=== PATIENT | female | born 1980 | race Caucasian/White ===

== ENCOUNTER 2016-06-06 19:44 | Emergency (ER) | payer OTHER ==
[~2016-06-06] VITALS: Ht 167.6 cm; Wt 95.5 kg
[2016-06-06 19:46] VITALS: BP 123/74; PULSE 85; RESP 16; O2SAT 100
--- NOTE | 2016-06-06 21:09 | ED.REPORT ---
HPI-Back Pain Under 40 Date of Service Jun 06, 2016 ED Provider: Dr. Александр Mendiola M.D. A 36 year old female with a history of sciatica presents to the ED with left- sided lower back pain onset two weeks ago after moving furniture. The pain intermittently radiates down her left leg. She has been applying heat and ice as well as taking ibuprofen and Tylenol with no relief. She was seen in Urgent Care five days ago where she received a Toradol shot with no relief. The pain has worsened since then. Now the patient also reports numbness/tingling and intermittent weakness in her left leg. Her sciatic pain in the past was relieved with a few days of heat, ice, and rest. The patient denies bowel/ bladder incontinence. Nursing Notes Stated Complaint: BACK PAIN Chief Complaint: Back Pain or Injury Nursing Notes Reviewed: Yes Allergies: Coded Allergies: meperidine (Verified Allergy, Intermediate, hives, 06/06/16) Uncoded Allergies: DIMETAPP (Allergy, Severe, anaphylaxis, 06/06/16) Scheduled Prednisone (PredniSONE) 20 Mg Tablet 20 MG PO TID General Time Seen by MD: 21:08 Chief Complaint Lumbar pain Hx Obtained From: Patient Arrived By: Walk-in Sudden in Onset?: No Onset Occurred: More than a week ago... (2 weeks) Symptom Duration: Since onset Caused by: Lifting Location: : Spinal lumbar area Quality: Painful Radiation: : Left leg above knee: Left leg below knee Severity: Current: Moderate Severity: Maximum: Moderate Associated with: Reports: Numbness left low ext, Tingling left lower ext, Weakness left lower ext, Denies: Fever Pertinent Negative: Relieved by nothing Recent Healthcare: No recent doctor visit Similar Sx Previous: Yes Past Medical History Past Medical History Sciatica Leg fracture Past Surgical History Leg surgery s/p fracture Smoking History Unknown if Ever Smoker Social History Moved to the area recently 06/2016 Other Social History: Good social support, From out of town Ambulatory Status Independent Review of Systems Review of Systems Note: + Left leg paresthesia Constitutional: Denies: Fever Respiratory: Denies: Non-productive cough, Shortness of breath GI: Denies: Vomiting Female: Denies: Incontinence Musculoskeletal: Reports: Back pain (Left-sided lower ), Extremity pain (Left leg) Neurologic: Reports: Focal weakness (Left leg), Numbness (Left leg), Denies: Bladder dysfunction, Bowel dysfunction Complete sys rev & neg: except as marked. Physical Exam Physical Exam Notes: Initial Vital Signs Vital Signs (First) Date Time Temp Pulse Resp B/P Pulse Ox O2 Delivery O2 Flow Rate FiO2 06/06/16 19:46 36.4 85 16 123/74 100 Room Air Initial VS: Reviewed, Vital signs normal Head / Eyes: Atraumatic, Normocephalic ENT: Conjunctiva normal, No scleral icterus Neck: Supple, Full range of motion Respiratory: No respiratory distress Cardiovascular: Regular rate & rhythm, Heart sounds normal Skin: Warm, Dry, No cyanosis Psychiatric: Mood/affect normal, Behavior normal, Normal thought content General/Constitutional: Awake, Alert Back: Atraumatic Straight Leg Raise: Positive: Strt leg raise + L 10 deg (with pain radiating down left buttock to the mid thigh) Pain is in L5-S1 dermatomal distribution Left sciatic notch tenderness Neurologic: Oriented X3, Speech NL, No sensory deficits Focal Weakness: Negative: Foot drop L, Foot drop R Reflex Abnormality: Positive: Achilles L... (1), Achilles R... (1), Patella L... (1), Patellar R... (2) Gait - Left foot rotates outward more than right Interpretation & Diagnostics LUMBAR SPINE MRI: IMPRESSION: 1. Moderate disc desiccation and height loss at L4-5 and L5-S1. 2. L4-5 posterior annular tear. 3. Broad-based left lateral L5-S1 disc bulge which abuts the exiting nerve root at this level. Dictated by: Migdalia Diana M.D. on 06/06/2016 at 22:02 Re-Eval/Medical Decision Med Decision/Clinical Course 36-year-old female with a history of disc disease presents with progressive left sciatica with leg weakness and decreased left patellar reflex. No bowel or bladder problems. MRI was done because of the extended history and progressive nature. It showed that she does have disc disease with nerve impingement at L4 5 and L5-S1. She was given a prepack of oxycodone/ acetaminophen 5/325 #10 and a prescription for 5 days of prednisone. She is to follow-up with [facility] and [facility] therapy. Re-Evaluation/Progress : Time of Eval: 23:12 Patient Status: Condition improved Re-Evaluation/Progress Note: Discussed with patient MRI results, diagnosis, and plan for discharge. Follow-up and return to the ER instructions given. Patient agrees with plan for care and all questions were addressed. Counseled Regarding: Diagnosis, Need for follow-up, When/why to return to ED Discharge & Departure Impression: Primary Impression: Sciatica of left side Additional Impression: Lumbar disc herniation Disposition: Home All VS Reviewed: Yes Condition: Stable Patient Instructions: Lumbar Radiculopathy (ED) Additional Instructions: There is disc disease at L4-5 and L5-S1, likely the source of your sciatic nerve pain. You will need physical therapy and further orthopedic evaluation. Continue your present medications. Add prednisone 20 mg by mouth 3 times a day for 5 days, #15 prescription written. Oxycodone/acetaminophen 5/325 (Percocet) , 1 or 2 pills every 4-6 hours as needed for severe pain, #10 dispensed. You should use this medication minimally and not plan to refill it. Referrals: James Crenshaw MD (PCP) Scribe Attestation Portions of this note were transcribed by Laure Kim. I, Dr. Mendiola, personally performed the history, physical exam, and medical decision-making; I reviewed and confirmed the accuracy of the information in the transcribed note. Signed by: Pablo Timmons, 06/06/2016, 23:31 copies to: James Crenshaw MD, Howard L MD Jun 06, 2016 21:09 LAURE KIM Jun 06, 2016 21:32
[2016-06-06] MEDS ORDERED: predniSONE 20 mg Tablet PO ONE (21:30)
--- NOTE | 2016-06-06 22:04 | DRSVH ---
PROCEDURE: MRI LUMBAR SPINE WITHOUT CONTRAST ([id number]) INDICATIONS: L sciatica, leg weakness, decreased patellar DTR TECHNIQUE: Noncontrast sagittal T1 spin echo and T2 fast echo, sagittal STIR, axial T1 and T2 fast spin echo thr ough the lumbar spine. In cases with scoliosis, additional coronal T2 fast spin echo may be performe d. COMPARISON: None. FINDINGS: Image quality: Excellent. Alignment and Curvature: There is normal bony alignment. Bone Marrow: Marrow is of normal overall signal. No acute vertebral body compression fractures. Spinal Cord: Conus medullaris terminates at the T12/L1 level. Visualized cord demonstrates normal s ignal and size. Paraspinous Soft Tissues: No paravertebral masses. L1-L2: Normal appearance. L2-L3: Normal appearance. L3-L4: Mild disc bulge. Mild facet and ligamentum flavum hypertrophy. No canal stenosis or foraminal narrowing. L4-L5: Moderate disc desiccation and height loss. Posterior focal high intensity zone. Moderate facet and ligamentum flavum hypertrophy. Broad-based disc bulge. Mild canal stenosis. No neuroforaminal na rrowing. L5-S1: Moderate disc desiccation and height loss. Broad-based disc bulge. Left lateral broad-based di sc bulge with narrowing of the left lateral recess. This bulge likely abuts the exiting left nerve ro ot. Moderate facet sclerosis. No canal stenosis. No neuroforaminal narrowing. IMPRESSION: 1. Moderate disc desiccation and height loss at L4-5 and L5-S1. 2. L4-5 posterior annular tear. 3. Broad-based left lateral L5-S1 disc bulge which abuts the exiting nerve root at this level. Dictated by: Migdalia Diana M.D. on 06/06/2016 at 22:02 Approved by: Migdalia Diana M.D. on 06/06/2016 at 22:02
[2016-06-06] MEDS ORDERED: _oxyCODONE/APAP 5-325 mg Tablet PO PRN (23:20)
[2016-06-06] MEDS ORDERED: PRE20 PO (23:26)
[2016-06-06 23:47] VITALS: BP 116/71; PULSE 76; RESP 16; O2SAT 96
== END 2016-06-07 00:03 | disposition home or self-care (01) ==
LOC: SED 19:44
DX: M54.32 Sciatica, left side (principal); X50.0XXA Overexertion from strenuous movement or load, initial encounter; Y93.E6 Activity, residential relocation; Y92.9 Unspecified place or not applicable; Y99.8 Other external cause status; M51.26 Other intervertebral disc displacement, lumbar region; Z88.5 Allergy status to narcotic agent

== ENCOUNTER 2016-08-04 17:19 | Emergency (ER) | payer OTHER ==
[~2016-08-04] VITALS: Ht 170.2 cm; Wt 97.7 kg
[~2016-08-04 17:19] MED LIST: PRE20 PO
[2016-08-04 17:24] VITALS: BP 148/98; PULSE 88; RESP 16; O2SAT 98
--- NOTE | 2016-08-04 18:39 | ED.REPORT ---
HPI-General Illness Date of Service Aug 04, 2016 ED Provider: Yuri Schaefer DO Pt is a 36 y/o female presentign to the ED with multiple medical complaints. She reports CP which she attributes to anxiety but she wants to be checked out because she was diagnosed with long QT syndrome in the remote past. She also c/ o low back pain which is not relieved by OTC pain medications. She was diagnosed with lumbar disc herniation after an MRI which was performed in the ED early June 2016 and has not received orthopedic follow-up yet because of insurance issues. She is also reporting a worsening cough onset 1 month ago which is now producing clear phlegm. She is a smoker and has no diagnosed pulmonary disease. She has a family history of cardiac disease but no diagnosed personal history. Pt denies bowel or bladder incontinence, SOB, abdominal pain, N/V/D, numbness or weakness of her lower extremities. Nursing Notes Stated Complaint: BACK PAIN, CHEST PAIN, COUGH Chief Complaint: General Complaint Nursing Notes Reviewed: Yes Allergies: Coded Allergies: meperidine (Verified Allergy, Intermediate, hives, 08/04/16) Uncoded Allergies: DIMETAPP (Allergy, Severe, anaphylaxis, 06/06/16) Scheduled Prednisone (PredniSONE) 20 Mg Tablet 20 MG PO TID Prednisone (PredniSONE) 20 Mg Tablet 40 MG PO DAILY Sulfamethoxazole/Trimeth 400-80 mg (Bactrim) 1 Each Tablet 1 TABLET PO BID Scheduled PRN Hydrocodone-Acetaminophen 5-325 mg (Hydrocodone-Acetaminophen 5-325 mg) 1 Each Tablet 1 TABLET PO Q4H PRN PRN For Pain General Time Seen by MD: 18:26 Chief Complaint Multip medical complaints Hx Obtained From: Patient Arrived By: Walk-in Sudden in Onset?: No Onset Occurred: More than a week ago... (1 month) Symptom Duration: Intermittent Location: : Chest Quality: Painful Radiation: : Does not radiate Severity: Current: Mild Severity: Maximum: Mild Past Medical History Past Medical History Lumbar disc herniation with left leg sciatica Remote history of long QT syndrome - EKG 08/04/16 normal Leg fracture PCOS Past Surgical History Leg surgery s/p fracture Family History Cardiac disease Smoking History Current Every Day Smoker Social History Moved to the area recently 06/2016 Other Social History: Good social support, From out of town Ambulatory Status Independent Review of Systems Full Review of Systems Constitutional: Denies: Chills, Fever Respiratory: Reports: Prod cough, clear, Denies: Shortness of breath Cardiovascular: Reports: Chest pain, Denies: Dyspnea on exertion GI: Denies: Abdominal pain, Diarrhea, Nausea, Vomiting Female: Denies: Dysuria, Hematuria Musculoskeletal: Reports: Lumbar pain, Denies: Extremity pain, Extremity swelling Neurologic: Denies: Bladder dysfunction, Bowel dysfunction, Numbness, Weakness Psychiatric: Reports: Anxiety, Denies: Delusional Complete sys rev & neg: except as marked. Physical Exam Vital Signs Vital Signs Date Time Temp Pulse Resp B/P Pulse Ox O2 Delivery O2 Flow Rate FiO2 08/04/16 21:55 69 20 123/87 98 Room Air 08/04/16 20:34 83 16 131/84 94 Room Air 08/04/16 17:24 36.2 88 16 148/98 98 Room Air Initial VS: Reviewed, Vital signs normal Head / Eyes: Atraumatic, Normocephalic, PERRL ENT: Mucous membranes moist, Conjunctiva normal, No scleral icterus Neck: Supple, Full range of motion Respiratory: Breath sounds normal, Clear to auscultation, No respiratory distress Cardiovascular: Regular rate & rhythm, Heart sounds normal, Intact distal pulses Abdomen / GI: Soft, Non-tender, No guarding, No rebound, No distention Skin: Warm, Dry, No cyanosis Neurologic: Alert, Oriented, Nonfocal Psychiatric: Mood/affect normal, Behavior normal, Normal thought content General/Constitutional: Awake, Alert, No acute distress, Well appearing, Cooperative, Not toxic appearing Back: Atraumatic, Full range of motion, No midline vertebral tend Mild left lumbar tenderness Interpretation & Diagnostics Lab Results Interpretation Result Diagram: 08/04/16193908/04/161939 Test 08/04/16 18:45 08/04/16 19:40 Urine Color Yellow (YELLOW) Urine Appearance Hazy (CLEAR,HAZY) Urine pH 5.5 (5.0-8.0) Urine Specific [place] 1.030 (1.003-1.035) Urine Protein Negativemg/dL (NEG,TRACE) Urine Glucose (UA) Negativemg/dL (NEGATIVE) Urine Ketones Negativemg/dL (NEGATIVE) Urine Occult Blood Large (NEGATIVE) Urine Nitrite Negative (NEGATIVE) Urine Bilirubin Negative (NEGATIVE) Urine Urobilinogen Normalmg/dL (NORMAL) Urine Leukocyte Esterase Trace (NEGATIVE) Urine RBC 11-50/hpf (0-2) Urine WBC 6-10/hpf (0-5) Urine Epithelial Cells Many/hpf (NONE-MOD) Urine Crystals None seen (NONE SEEN) Urine Bacteria Few/hpf (NONE-FEW) Urine Hyaline Casts None/lpf (NONE) Urine Granular Casts None seen (NONE SEEN) Urine Waxy Casts None seen (NONE SEEN) Urine Red Blood Cell Casts None seen (NONE SEEN) Urine White Blood Cell Casts None seen (NONE SEEN) Urine Mucus Present (None Seen) Urine Trichomonas None seen (NONE SEEN) Urine Yeast None (NONE SEEN) Urinalysis Comment None Urine Culture Reflexed Indicated White Blood Count 12.2th/mm3 (3.8-10.1) Red Blood Count 4.83mil/mm3 (3.90-5.20) Hemoglobin 13.7g/dL (12.0-15.6) Hematocrit 40.4% (35.0-46.0) Mean Corpuscular Volume 83.6fL (81-100) Mean Corpuscular Hemoglobin 28.4pg (27.0-35.0) Mean Corpuscular Hemoglobin Concent 33.9% (32.0-37.0) Red Cell Distribution Width 13.5% (12.3-15.4) Platelet Count 381bil/L (150-400) Neutrophils (%) (Auto) 62.5% (40-74) Lymphocytes (%) (Auto) 28.1% (14-46) Monocytes (%) (Auto) 7.1% (4-12) Eosinophils (%) (Auto) 1.8% (0-5) Basophils (%) (Auto) 0.3% (0-3) Sodium Level 136mEq/L (134-144) Potassium Level 3.7mEq/L (3.5-5.2) Chloride Level 100mEq/L (97-108) Carbon Dioxide Level 20mmol/L (18-29) Blood Urea Nitrogen 22mg/dL (6-20) Creatinine 0.54mg/dL (0.57-1.00) Estimat Glomerular Filtration Rate 181mL/min (>59) Glucose Level 100mg/dL (60-99) Calcium Level 9.1mg/dL (8.5-10.1) Total Bilirubin < 0.2mg/dL (0.0-1.2) Aspartate Amino Transf (AST/SGOT) 12U/L (0-50) Alanine Aminotransferase (ALT/SGPT) 11U/L (0-32) Alkaline Phosphatase 67U/L (25-150) Troponin T < 0.010ug/L (0.0-0.011) Total Protein 7.0g/dL (6.4-8.4) Albumin 4.0g/dL (3.4-5.0) Hold Garcia Top Tube Received (Received) ECG Interpretation Time: 18:54 Interpreted by: ED physician Normal ECG Interpretation: Normal ECG w/ rate of... (81), Normal rate, Normal sinus rhythm, No acute ischemic changes, Normal QRS, Normal axis, Normal intervals, Adequate tracing X-Ray Chest Interpretation Chest Xray Interpretation: IMPRESSION: No acute process. Dictated by: Julio Norris M.D. on 08/04/2016 at 20:15 Approved by: Julio Norris M.D. on 08/04/2016 at 20:15 View: Portable, AP & lat Interpretation / Wet Read by: Interpret - Radiologist Re-Eval/Medical Decision Med Decision/Clinical Course 36-year-old female presenting for 3 different complaints. First she is noting that her back pain is returning and she has a history of herniated disks. Her pain was significantly improved after a course of steroids several weeks ago. She has no weakness of her left lower extremity but continues to have pain radiating down the leg. She denies urinary symptoms however her UA has blood and white blood cells. Her serum white blood cell count is elevated. She is also concerned about cough she has had that keeps her up at night. Her chest x- ray is negative and I do not feel that she needs an antibiotic. Discharged with Bactrim for UTI, five-day course of prednisone for low back, and small supply of Argillite. Have also given her referral to establish with a new primary care Time of Eval: 21:08 Re-Evaluation/Progress Note: Pt rechecked. Informed pt of plan for treatment. Pt understands and agrees with plan for treatment. F/U instructions and RTER warnings given. All questions addressed. Counseled Regarding: Diagnosis, Lab results, Need for follow-up, When/why to return to ED Discharge & Departure Primary Impression: Urinary tract infection Urinary tract infection type: site unspecified Hematuria presence: without hematuria Qualified Code: N39.0 - Urinary tract infection, site not specified Additional Impressions: Viral upper respiratory infection Low back pain with left-sided sciatica Chronicity: acute Back pain laterality: left Qualified Code: M54.42 - Lumbago with sciatica, left side Disposition: Home Discharge Condition All VS Reviewed: Yes Condition: Stable Patient Instructions: Upper Respiratory Infection (ED), Urinary Tract Infection in Women (ED) Additional Instructions: The labs showed signs of urinary tract infection. The cough is likely caused by a viral infection. Your labs were otherwise normal. Your chest x-ray was normal and showed no sign of pneumonia. Your EKG was also normal. There was no sign of heart attack or long QT syndrome at this time. Take the prescribed medications as directed. Return to the emergency department if you experience trouble breathing, high fever, persistent vomiting, severe pain, or for other concerning symptoms. Follow-up with your primary care doctor next week. Referrals: [facility] Scribe Attestation Portions of this note were transcribed by Florencio Celestin. I, Dr. Schaefer, personally performed the history, physical exam and medical decision-making; I reviewed and confirmed the accuracy of the information in the transcribed note. Signed by Pablo Landrum, 08/04/16 - 1899 Yuri Schaefer DO Aug 04, 2016 18:39 FLORENCIO CELESTIN Aug 04, 2016 18:54
[2016-08-04] MEDS ORDERED: HYDROcodone-APAP 5-325 mg Tablet PO ONE ×2 (19:15→21:10)
[2016-08-04 19:24] LABS: APPEARANCE,URINE HAZY (CLEAR,HAZY); COLOR,URINE YELLOW (YELLOW); OCCULT BLOOD,URINE LARGE (NEGATIVE); PH,URINE 5.5 (5.0-8.0)
[2016-08-04 19:25] LABS: UROBILINOGEN,URINE NORMAL (NORMAL)
[2016-08-04 19:51] LABS: BASOPHILS % (AUTO) 0.3 % (0-3); EOSINOPHILS % (AUTO) 1.8 % (0-5); MONOCYTES % (AUTO) 7.1 % (4-12); Mean Corpuscular Hemoglobin 28.4 pg (27.0-35.0); Mean Corpuscular Volume 83.6 fL (81-100); NEUTROPHILS % (AUTO) 62.5 % (40-74); Platelet Count 381 bil/L (150-400)
--- NOTE | 2016-08-04 20:17 | DRSVH ---
PROCEDURE: X-RAY CHEST, TWO VIEWS ([id number]) INDICATIONS: chest pain, shortness of breath TECHNIQUE: 2 views of the chest were acquired. COMPARISON: None. FINDINGS: Surgical changes and devices: None. Lungs and pleura: No pleural effusions or pneumothorax. Lungs are clear. Mediastinum: Mediastinal contours are normal. Heart size is normal. Bones and chest wall: No suspicious bony abnormalities. Soft tissues appear unremarkable. IMPRESSION: No acute process. Dictated by: Julio Norris M.D. on 08/04/2016 at 20:15 Approved by: Julio Norris M.D. on 08/04/2016 at 20:15
[2016-08-04 20:34] VITALS: BP 131/84; PULSE 83; RESP 16; O2SAT 94
[2016-08-04 20:35] LABS: TROPONIN T < 0.010 ug/L (0.0-0.011)
[2016-08-04] MEDS ORDERED: Nitrofurantoin Monohyd-Macrocryst 100 mg Capsule PO ONE (21:10)
[2016-08-04] MEDS ORDERED: PRE20 PO (21:37)
[2016-08-04] MEDS ORDERED: HYDR-4003 PO (21:37)
[2016-08-04] MEDS ORDERED: SULF-239 PO (21:37)
[2016-08-04 21:55] VITALS: BP 123/87; PULSE 69; RESP 20; O2SAT 98
== END 2016-08-04 21:55 | disposition home or self-care (01) ==
LOC: SED 17:19
DX: N39.0 Urinary tract infection, site not specified (principal); J06.9 Acute upper respiratory infection, unspecified; M54.42 Lumbago with sciatica, left side; R07.9 Chest pain, unspecified; F17.200 Nicotine dependence, unspecified, uncomplicated; Z87.828 Personal history of other (healed) physical injury and trauma; Z88.8 Allergy status to other drugs, medicaments and biological substances

== ENCOUNTER 2016-08-12 13:04 | Emergency (ER) | payer OTHER ==
[~2016-08-12] VITALS: Ht 167.6 cm; Wt 97.7 kg
[~2016-08-12 13:04] MED LIST changes: +HYDR-4003 PO; +SULF-239 PO
[2016-08-12 13:07] VITALS: BP 121/79; PULSE 79; RESP 16; O2SAT 96
[2016-08-12] MEDS ORDERED: DIPH25CA6 PO (13:10)
--- NOTE | 2016-08-12 13:47 | ED.REPORT ---
HPI-Rash / Abscess Date of Service Aug 12, 2016 ED Provider: Veronique Eldridge History of Present Illness: bite on right foot last night, itching last night. nausea vomiting and diarrhea started last night. primary care is [facility] 09/06/2016. no medications. vomit 3 time, diarrhea a dozen times. able to hold down liqueds, drinking water and juice urinate today. no pain. Nursing Notes Stated Complaint: INSECT BITE/NAUSEA/VOMITING/DIARRHEA Chief Complaint: Female Abdominal Pain Nursing Notes Reviewed: Yes Allergies: Coded Allergies: meperidine (Verified Allergy, Intermediate, hives, 08/12/16) Uncoded Allergies: DIMETAPP (Allergy, Severe, anaphylaxis, 06/06/16) Scheduled Prednisone (PredniSONE) 20 Mg Tablet 40 MG PO DAILY Sulfamethoxazole/Trimeth 400-80 mg (Bactrim) 1 Each Tablet 1 TABLET PO BID Scheduled PRN diphenhydrAMINE HCl (Benadryl) 25 Mg Capsule 75 MG PO HS PRN PRN General Time Seen by MD: 13:44 Chief Complaint Rash, Other Hx Obtained From: Patient Symptom Duration: Since onset Past Medical History Past Medical History Lumbar disc herniation with left leg sciatica Remote history of long QT syndrome - EKG 08/04/16 normal Leg fracture PCOS Denies: Asthma, Diabetes mellitus Past Surgical History Leg surgery s/p fracture Family History Cardiac disease Smoking History Current Every Day Smoker Social History Moved to the area recently 06/2016 Alcohol Use: "Social" Drug Use: Denies drug use Other Social History: Good social support, From out of town 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, 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 Ambulatory Status Independent Review of Systems Basic Review of Systems : No dysuria, No frequency Psychiatric: Normal thought content Physical Exam Initial Vital Signs Vital Signs (First) Date Time Temp Pulse Resp B/P Pulse Ox O2 Delivery O2 Flow Rate FiO2 08/12/16 13:07 36.7 79 16 121/79 96 Room Air Initial VS: Reviewed, Vital signs normal Head / Eyes: Atraumatic, Normocephalic, PERRL ENT: Mucous membranes moist, Conjunctiva normal, No scleral icterus Neck: Supple, Non-tender, Full range of motion Respiratory: Breath sounds normal, Clear to auscultation, No respiratory distress Cardiovascular: Regular rate & rhythm, Heart sounds normal, Intact distal pulses Abdomen / GI: Soft, Non-tender, No guarding, No rebound, No distention Back: No CVA tenderness Lymphatic: No lymphadenopathy Extremities: Vascular intact, Neuro intact, No swelling, No tenderness Neurologic: Alert, Oriented, Nonfocal Psychiatric: Mood/affect normal, Behavior normal, Normal thought content General/Constitutional: Awake, Alert, No acute distress, Well appearing, Well developed, Well hydrated, Well nourished Skin: Atraumatic, Color NL, No rash ENT: Atraumatic, Airway patent, Mucous membranes moist, Pharynx NL Respiratory / Chest: Atraumatic, Breath sounds NL, Breath sounds = bilat, No respiratory distress Cardiovascular: Heart rate NL, Regular rhythm, Heart sounds NL right foot ans small puncture wound on dorsum of foot. No erthyma or swelling. Slight ecchymosis noted distally on foot. Interpretation & Diagnostics Lab Results Interpretation Test 08/12/16 14:00 Hold Urine Received (Received) Lab Results Interpretation: posturals are normal Re-Eval/Medical Decision Med Decision/Clinical Course 36 year old female presents for evualation of bite on foot and NVD. Patient has opend bottle of water in hand and is drinking without difficulty. Posturals are normal as is urine. Exam is most consistent with bug bite. No sign of cellulitis. Discharge & Departure Impression: Primary Impression: Bug bite Additional Impression: Vomiting and diarrhea Disposition: Home Patient Instructions: Insect Bite or Sting (ED), Gastroenteritis (ED) Additional Instructions: The bug bite does not show any sign of infection. If it becomes red like a sunburn return to the ER. Your posturals are normal. Use zofran 1 tablet up to 2 times a day as needed for vomiting. Push fluids. Please keep your primary care appointment as scheduled. Return if fever or urinating less than 3 times a day. Referrals: Cayla Hall PA-C EDSupervising Provider for APC: June Delatorre MD copies to: Cayla Hall PA-C, Sue ARNP Aug 12, 2016 13:47
[2016-08-12 14:41] VITALS: BP_SYST 123; BP_SYST 124; BP_SYST 131; BP_DIAS 75; BP_DIAS 77; BP_DIAS 81; PULSE 72; PULSE 74; PULSE 79; O2SAT 96; O2SAT 97
[2016-08-12 14:54] VITALS: BP 131/77; PULSE 79; RESP 16; O2SAT 96
== END 2016-08-12 14:46 | disposition home or self-care (01) ==
LOC: SED 13:04
DX: S90.861A Insect bite (nonvenomous), right foot, initial encounter (principal); W57.XXXA Bitten or stung by nonvenomous insect and other nonvenomous arthropods, initial encounter; Y92.9 Unspecified place or not applicable; Y93.9 Activity, unspecified; Y99.9 Unspecified external cause status; R11.2 Nausea with vomiting, unspecified; R19.7 Diarrhea, unspecified; F17.200 Nicotine dependence, unspecified, uncomplicated; Z88.5 Allergy status to narcotic agent; Z88.8 Allergy status to other drugs, medicaments and biological substances

== ENCOUNTER 2016-08-21 19:27 | Emergency (ER) | payer OTHER ==
[~2016-08-21] VITALS: Ht 167.6 cm; Wt 97.7 kg
[~2016-08-21 19:27] MED LIST changes: +DIPH25CA6 PO; -HYDR-4003 PO
[2016-08-21 19:39] VITALS: BP 153/86; PULSE 89; RESP 20; O2SAT 96
[2016-08-21 20:01] LABS: APPEARANCE,URINE HAZY (CLEAR,HAZY); COLOR,URINE YELLOW (YELLOW); OCCULT BLOOD,URINE MODERATE (NEGATIVE); PH,URINE 6.5 (5.0-8.0); UROBILINOGEN,URINE NORMAL (NORMAL)
== END 2016-08-21 20:15 | disposition left against medical advice (07) ==
LOC: SED 19:27
DX: M54.9 Dorsalgia, unspecified (principal); Z53.21 Procedure and treatment not carried out due to patient leaving prior to being seen by health care provider

== ENCOUNTER 2016-08-22 22:27 | Emergency (ER) | payer OTHER ==
[~2016-08-22] VITALS: Ht 170.2 cm; Wt 97.7 kg
[2016-08-22 22:29] VITALS: BP 122/79; PULSE 88; RESP 16; O2SAT 99
== END 2016-08-22 22:55 | disposition left against medical advice (07) ==
LOC: SED 22:27
DX: Z53.21 Procedure and treatment not carried out due to patient leaving prior to being seen by health care provider (principal)